=== PATIENT | male | born 1970 | race Caucasian/White ===

== ENCOUNTER 2022-08-25 19:36 | Emergency (ER) | payer OTHER, BC ==
[2022-08-25 19:59] VITALS: BP 123/69; PULSE 59; RESP 16; TEMP 97.5; BMI 30.5
[2022-08-25 20:39] LABS: HEMATOCRIT 38.7 % (35.4-49); HEMOGLOBIN 12.5 G/dL (11.7-16.9); MCH 28.3 pg (25.7-33.7); MCHC 32.4 g/dl (32.0-35.9); MEAN CELL VOLUME 87.4 fl (80-96); MEAN PLT VOLUME 8.9 fl (7.5-11.1); PLATELET COUNT 151.7 10^3/uL (134-434); RBC 4.43 10^6/uL (4.00-5.60); RDW 15.4 % (11.9-15.9); WHITE BLOOD COUNT 3.5 10^3/uL (4.0-10.8)
[2022-08-25 21:07] LABS: ALBUMIN 3.9 g/dl (3.4-5.0); BILIRUBIN,TOTAL 0.4 mg/dl (0.2-1); BLOOD UREA NITROGEN 13.9 mg/dl (7-18); CALCIUM 9.6 mg/dl (8.5-10.1); CREATININE 0.5 mg/dl (0.6-1.3); POTASSIUM 4.1 mmol/L (3.5-5.1); SGOT/AST 21.2 U/L (15-37); SGPT/ALT 19.7 U/L (7-52); TOT PROT 6.8 g/dl (6.4-8.2)
== END 2022-08-25 21:24 | disposition home or self-care (01) ==
LOC: FER 19:36
DX: L89.619 Pressure ulcer of right heel, unspecified stage (principal)
CPT/HCPCS: 36415; 73630-TC-RT-FY; 80053; 85027; 99284-25